=== PATIENT | male | born 1985 | race Caucasian/White ===

== ENCOUNTER 2017-03-11 10:37 | Observation (INO) | payer OTHER ==
[2017-03-11] MEDS ORDERED: Ketorolac 30 MG/ML SDV IVPUSH ONE (10:42)
[2017-03-11] MEDS ORDERED: Sodium Chloride 0.9% 1,000 ML IV ONE (10:42)
[2017-03-11] MEDS ORDERED: Ondansetron 4 MG/2 ML SDV IVPUSH ONE (10:42)
[2017-03-11 11:16] LABS: CHLORIDE,CL 107 mmol/L (98-110); SODIUM,NA 140 mmol/L (136-146)
[2017-03-11] MEDS ORDERED: Morphine 4 MG/ML Syringe IVPUSH ONE (11:32)
--- NOTE | 2017-03-11 11:32 | EDM.PDOC ---
ED HPI GENERAL MEDICAL PROBLEM - General Chief Complaint: Abdominal Pain Stated Complaint: ABD PAIN RT LOWER SIDE Time Seen by Provider: 03/11/17 10:41 Source of Information: Reports: Patient History Limitations: Reports: No Limitations - History of Present Illness INITIAL COMMENTS - FREE TEXT/NARRATIVE: HISTORY AND PHYSICAL: History of present illness: Patient is a 31-year-old male who presents to the emergency room with complaints of right lower quadrant pain. His right lower quadrant pain radiates into the right groin. He states it started approximately yesterday afternoon as had not resolved. He says it somewhat feels better "when I take a warm bath". He denies any nausea, vomiting, diarrhea or constipation. Denies any fever, chills, chest pain or shortness of breath. Ports that his bowel movements have been regular, has not noticed any blood. Denies any dysuria or difficulty starting his stream. He denies any testicular swelling or pain. Review of systems: As per history of present illness and below otherwise all systems reviewed and negative. Past medical history: As per history of present illness and as reviewed below otherwise noncontributory. Surgical history: As per history of present illness and as reviewed below otherwise noncontributory. Social history: No reported history of drug or alcohol abuse. Family history: As per history of present illness and as reviewed below otherwise noncontributory. Physical exam: Gen.: Well-developed and well-nourished 31-year-old male. Appears nontoxic and in no acute distress. Alert and oriented. HEENT: Atraumatic, normocephalic, pupils reactive, negative for conjunctival pallor or scleral icterus, mucous membranes moist, throat clear, neck supple, nontender, trachea midline. Lungs: Clear to auscultation, breath sounds equal bilaterally, chest nontender. Heart: S1S2, regular rate and rhythm Abdomen: Soft, nondistended, right lower quadrant tenderness with mild rebound tenderness. Negative for masses or hepatosplenomegaly. Negative for costovertebral tenderness. Pelvis: Stable nontender. Genitourinary: Deferred. Rectal: Deferred. Extremities: Atraumatic, negative for cords or calf pain. Neurovascular unremarkable. Neuro: Awake, alert, oriented. Cranial nerves II through XII unremarkable. Cerebellum unremarkable. Motor and sensory unremarkable throughout. Exam nonfocal. I discussed with the patient the labs and CT that were going to take place. At this time and going to give him some IV fluids Zofran and Toradol. I inform the patient if he needed any additional or stronger pain medication please let the nursing staff know and we will give that to him. Patient is aware of plan of care and denies any further questions at this time. 1315: CT results show extensive inflammatory changes to the right lower quadrant with concern about appendicitis. Dr. Rai was consulted at this time. He is aware of the case. He states he will come in to evaluate the patient. Patient is aware of CT findings with likely surgery this afternoon. Patient has been nothing by mouth since 9 AM this morning. The pain is managed. 1325- Dr. Rai and resident her here to evaluate the patient. Diagnostics: CBC, CMP, amylase, lipase, UA, CT abdomen and pelvis Therapeutics: IV fluid, Zofran, Toradol Impression: Appendicitis Plan: To the OR under the care of Dr. Rai. Definitive disposition and diagnosis as appropriate pending reevaluation and review of above. Improves with: Reports: Heat Therapy Worsens with: Reports: Movement Associated Symptoms: Reports: No Other Symptoms Right Lower Abdominal Pain Score (Numeric/FACES): 5 - Related Data Allergies Allergy/AdvReac Type Severity Reaction Status Date / Time penicillin Allergy Itching Verified 03/11/17 10:57 Home Meds: Home Meds . 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 ED EXAM, GI/ABD - Physical Exam Exam: See Below (See dictation) Course - Vital Signs Last Recorded V/S: Last Vital Signs Temp 36.2 C 03/11/17 10:53 Pulse 79 03/11/17 10:53 Resp 18 03/11/17 10:53 BP 130/56 L 03/11/17 10:53 Pulse Ox 97 03/11/17 10:53 - Orders/Labs/Meds Orders: Active Orders 24 hr Category Date Time Status Patient Status [ADT] Routine ADT 03/11/17 13:52 Active Antiembolic Devices [RC] PER UNIT ROUTINE Care 03/11/17 13:54 Active Bhatti Catheter Insertion [Insert Urinary Catheter] [OM. Care 03/11/17 14:00 Ordered PC] Q24H Notify Provider Consults [RC] ASDIRECTED Care 03/11/17 13:19 Active Oxygen Therapy [RC] PRN Care 03/11/17 13:52 Active Pulse Oximetry [RC] INTERMITTENT Care 03/11/17 13:52 Active Skin Preparation [RC] .PREOP Care 03/11/17 13:53 Active Urinary Catheter Assessment [RC] ASDIRECTED Care 03/11/17 13:53 Active Urinary Catheter Assessment [RC] ASDIRECTED Care 03/11/17 13:54 Active Vital Signs [RC] PER UNIT ROUTINE Care 03/11/17 13:52 Active Consult to Physician [CONS] Stat Cons 03/11/17 13:19 Active NPO Now [Nothing per Oral Now Diet] [DIET] Diet 03/11/17 Dinner Active Abdomen Pelvis w Cont [CT] Stat Exams 03/11/17 11:32 Taken Lactated Ringers [Ringers, Lactated] 1,000 ml Med 03/11/17 13:45 Active IV ASDIRECTED Antiembolic Hose [OM.PC] PER UNIT ROUTINE Oth 03/11/17 06:00 Ordered Antiembolic Hose [OM.PC] PER UNIT ROUTINE Oth 03/12/17 06:00 Ordered Sequential Compression Device [OM.PC] Routine Oth 03/11/17 13:52 Ordered Resuscitation Status Routine Resus Stat 03/11/17 13:52 Ordered Medication Orders Lactated Ringer's (Ringers, Lactated) 1,000 mls @ 150 mls/hr IV ASDIRECTED LASHAUN Labs: Laboratory Tests 03/11/17 03/11/17 03/11/17 Range/Units 10:51 10:51 11:02 WBC 11.11 H (4.0-11.0) K/uL RBC 5.19 (4.50-5.90) M/uL Hgb 15.7 (13.0-17.0) g/dL Hct 44.9 (38.0-50.0) % MCV 86.5 (80.0-98.0) fL MCH 30.3 (27.0-32.0) pg MCHC 35.0 (31.0-37.0) g/dL RDW Std Deviation 40.9 (28.0-62.0) fl RDW Coeff of Christen 13 (11.0-15.0) % Plt Count 197 (150-400) K/uL MPV 9.80 (7.40-12.00) fL Neut % (Auto) 78.7 (48.0-80.0) % Lymph % (Auto) 12.6 L (16.0-40.0) % [place] % (Auto) 7.5 (0.0-15.0) % Eos % (Auto) 1.1 (0.0-7.0) % Baso % (Auto) 0.1 (0.0-1.5) % Neut # (Auto) 8.8 H (1.4-5.7) K/uL Lymph # (Auto) 1.4 (0.6-2.4) K/uL [place] # (Auto) 0.8 (0.0-0.8) K/uL Eos # (Auto) 0.1 (0.0-0.7) K/uL Baso # (Auto) 0.0 (0.0-0.1) K/uL Nucleated RBC % 0.0 /100WBC Nucleated RBCs # 0 K/uL Sodium 140 (136-146) mmol/L Potassium 4.0 (3.5-5.1) mmol/L Chloride 107 (98-110) mmol/L Carbon Dioxide 24 (21-31) mmol/L BUN 14 (6.0-23.0) mg/dL Creatinine 0.9 (0.6-1.5) mg/dL Est Cr Clr Drug Dosing 125.05 mL/min Estimated GFR (MDRD) > 60.0 ml/min Glucose 87 (60-110) mg/dL Calcium 9.3 (8.8-10.8) mg/dL Total Bilirubin 1.3 (0.1-1.5) mg/dL AST 19 (5-40) IU/L ALT 33 (8-54) IU/L Alkaline Phosphatase 67 (40-150) Total Protein 7.5 (6.0-8.0) g/dL Albumin 4.2 (3.5-5.0) g/dL Globulin 3.3 (2.0-3.5) g/dL Albumin/Globulin Ratio 1.3 (1.3-2.8) Amylase 43 (10-90) U/L Lipase 24 (7-80) U/L Urine Color YELLOW Urine Appearance CLEAR Urine pH 7.0 (5.0-8.0) Ur Specific [place] 1.020 (1.001-1.035) Urine Protein NEGATIVE (NEGATIVE) mg/dL Urine Glucose (UA) NEGATIVE (NEGATIVE) mg/dL Urine Ketones TRACE H (NEGATIVE) mg/dL Urine Occult Blood NEGATIVE (NEGATIVE) Urine Nitrite NEGATIVE (NEGATIVE) Urine Bilirubin NEGATIVE (NEGATIVE) Urine Urobilinogen 0.2 (<2.0) EU/dL Ur Leukocyte Esterase NEGATIVE (NEGATIVE) Urine RBC 0-1 (0-2/HPF) Urine WBC 0-1 (0-5/HPF) Ur Epithelial Cells RARE (NONE-FEW) Urine Bacteria RARE (NEGATIVE) Urine Mucus LIGHT (NONE-MOD) Meds: Medications Generic Name Dose Route Start Last Admin Trade Name Freq PRN Reason Stop Dose Admin Lactated Ringer's 1,000 mls @ 150 mls/hr 03/11/17 13:45 Ringers, Lactated IV ASDIRECTED LASHAUN Discontinued Medications Generic Name Dose Route Start Last Admin Trade Name Freq PRN Reason Stop Dose Admin Bupivacaine HCl Confirm 03/11/17 13:45 Sensorcaine-Mpf 0.5% Administered 03/11/17 13:46 Dose 10 ml .ROUTE .STK-MED ONE Cefazolin Sodium Confirm 03/11/17 13:45 Ancef Administered 03/11/17 13:46 Dose 1 gm .ROUTE .STK-MED ONE Sodium Chloride 1,000 mls @ 999 mls/hr 03/11/17 10:42 03/11/17 11:24 Normal Saline IV 03/11/17 11:42 999 mls/hr STAT ONE Administration Cefoxitin Sodium 2 gm/ Premix 50 mls @ 100 mls/hr 03/11/17 13:33 IV 03/11/17 14:02 ONETIME ONE Iopamidol 100 ml 03/11/17 12:00 03/11/17 12:01 Isovue Multipack-370 (76%) IVPUSH 03/11/17 12:01 100 ml ONETIME STA Administration Ketorolac Tromethamine 30 mg 03/11/17 10:42 03/11/17 11:24 Toradol IVPUSH 03/11/17 10:43 30 mg ONETIME ONE Administration Morphine Sulfate 4 mg 03/11/17 11:32 03/11/17 12:08 Morphine IVPUSH 03/11/17 11:33 4 mg ONETIME ONE Administration Morphine Sulfate 2 mg 03/11/17 13:19 Morphine IVPUSH 03/11/17 13:20 ONETIME ONE Ondansetron HCl 4 mg 03/11/17 10:42 03/11/17 11:25 Zofran IVPUSH 03/11/17 10:43 4 mg ONETIME ONE Administration Departure - Departure Time of Disposition: 14:07 Disposition: Still A Patient 32 Clinical Impression: Appendicitis Qualifiers: Appendicitis type: acute appendicitis Acute appendicitis type: unspecified acute appendicitis type Qualified Code(s): K35.80 - Unspecified acute appendicitis - Discharge Information - My Orders Last 24 Hours: My Active Orders 03/11/17 11:32 Abdomen Pelvis w Cont [CT] Stat 03/11/17 13:19 Notify Provider Consults [RC] ASDIRECTED Consult to Physician [CONS] Stat - Assessment/Plan Last 24 Hours: My Active Orders 03/11/17 11:32 Abdomen Pelvis w Cont [CT] Stat 03/11/17 13:19 Notify Provider Consults [RC] ASDIRECTED Consult to Physician [CONS] Stat
[2017-03-11] MEDS ORDERED: Iopamidol 755 MG/ML 500 ML Multipack Bottle IVPUSH STA (12:00)
[2017-03-11] MEDS ORDERED: Morphine 2 MG/ML Syringe IVPUSH ONE (13:19)
[2017-03-11] MEDS ORDERED: cefOXitin 2 GM in Premix Bag 1 BAG IV ONE (13:33)
--- NOTE | 2017-03-11 13:40 | PCM.CONS ---
<Luca Ochoa - Last Filed: 03/11/17 13:46> H&P History of Present Illness - General Date of Service: 03/11/17 Admit Problem/Dx: Abdominal pain Source of Information: Patient History Limitations: Reports: No Limitations - History of Present Illness Initial Comments - Free Text/Narative: Mr. Bird is a 31 year old male with no significant PMH, previous abdominal surgeries who takes no medications, is allergic to penicillin, who presents with 3 days history of abdominal pain to the right lower quadrant which has not improved with time. He denies fevers or chills, chest pain or shortness of breath, but states his pain is ongoing with any movement and he has lost his appetite. He states he last ate a smoothy at 10 am. Location: Reports: Abdomen (RLQ) Quality: Reports: Ache Severity: Moderate Improves with: Reports: None Worsens with: Reports: Movement Associated Symptoms: Reports: Loss of Appetite. Denies: Fever/Chills, Nausea/ Vomiting Right Lower Abdominal Pain Score (Numeric/FACES): 5 - Related Data Allergies/Adverse Reactions: Allergies Allergy/AdvReac Type Severity Reaction Status Date / Time penicillin Allergy Itching Verified 03/11/17 10:57 Home Medications: Home Meds . [No Known Home Meds] 07/12/14 [History] Past Medical History - Past Health History Medical/Surgical History: Denies Medical/Surgical History Other Respiratory History: "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" Social & Family History - Tobacco Use Smoking Status *Q: Never Smoker Second Hand Smoke Exposure: No - Caffeine Use Caffeine Use: Reports: Coffee - Alcohol Use Days Per Week of Alcohol Use: 1 Number of Drinks Per Day: 2 Total Drinks Per Week: 2 - Recreational Drug Use Recreational Drug Use: No H&P Review of Systems - Review of Systems: Review Of Systems: See Below General: Reports: Decreased Appetite. Denies: Fever, Chills HEENT: Reports: No Symptoms Pulmonary: Reports: No Symptoms Cardiovascular: Reports: No Symptoms Gastrointestinal: Reports: Abdominal Pain. Denies: Nausea, Vomiting Genitourinary: Reports: No Symptoms Musculoskeletal: Reports: No Symptoms Skin: Reports: No Symptoms Psychiatric: Reports: No Symptoms Neurological: Reports: No Symptoms Hematologic/Lymphatic: Reports: No Symptoms Immunologic: Reports: No Symptoms Exam - Exam Exam: See Below - Vital Signs Vital Signs: Last Vital Signs Temp 36.2 C 03/11/17 10:53 Pulse 79 03/11/17 10:53 Resp 18 03/11/17 10:53 BP 130/56 L 03/11/17 10:53 Pulse Ox 97 03/11/17 10:53 Weight: 262 lb 5.601 oz - Exam Quality Assessment: No: Supplemental Oxygen, Urinary Catheter General: Alert, Oriented, Mild Distress, Other (Appears uncomfortable) HEENT: Conjunctiva Clear, EOMI, Hearing Intact, Other (malar erythema) Lungs: Clear to Auscultation, Normal Respiratory Effort Cardiovascular: Regular Rate, Regular Rhythm GI/Abdominal Exam: Soft, Tender (To RLQ on palpation and rebound). No: Distended Extremities: Normal Inspection, Normal Range of Motion Peripheral Pulses: 2+: Radial (L), Radial (R), Dorsalis Pedis (L), Dorsalis Pedis (R) Neuro Extensive - Mental Status: Alert, Oriented x3, Normal Mood/Affect, Normal Cognition, Memory Intact Psychiatric: Alert, Normal Affect, Normal Mood - Patient Data Lab Results Last 24 hrs: Laboratory Results - last 24 hr 03/11/17 03/11/17 03/11/17 Range/Units 10:51 10:51 11:02 WBC 11.11 H (4.0-11.0) K/uL RBC 5.19 (4.50-5.90) M/uL Hgb 15.7 (13.0-17.0) g/dL Hct 44.9 (38.0-50.0) % MCV 86.5 (80.0-98.0) fL MCH 30.3 (27.0-32.0) pg MCHC 35.0 (31.0-37.0) g/dL RDW Std Deviation 40.9 (28.0-62.0) fl RDW Coeff of Christen 13 (11.0-15.0) % Plt Count 197 (150-400) K/uL MPV 9.80 (7.40-12.00) fL Neut % (Auto) 78.7 (48.0-80.0) % Lymph % (Auto) 12.6 L (16.0-40.0) % [place] % (Auto) 7.5 (0.0-15.0) % Eos % (Auto) 1.1 (0.0-7.0) % Baso % (Auto) 0.1 (0.0-1.5) % Neut # (Auto) 8.8 H (1.4-5.7) K/uL Lymph # (Auto) 1.4 (0.6-2.4) K/uL [place] # (Auto) 0.8 (0.0-0.8) K/uL Eos # (Auto) 0.1 (0.0-0.7) K/uL Baso # (Auto) 0.0 (0.0-0.1) K/uL Nucleated RBC % 0.0 /100WBC Nucleated RBCs # 0 K/uL Sodium 140 (136-146) mmol/L Potassium 4.0 (3.5-5.1) mmol/L Chloride 107 (98-110) mmol/L Carbon Dioxide 24 (21-31) mmol/L BUN 14 (6.0-23.0) mg/dL Creatinine 0.9 (0.6-1.5) mg/dL Est Cr Clr Drug Dosing 125.05 mL/min Estimated GFR (MDRD) > 60.0 ml/min Glucose 87 (60-110) mg/dL Calcium 9.3 (8.8-10.8) mg/dL Total Bilirubin 1.3 (0.1-1.5) mg/dL AST 19 (5-40) IU/L ALT 33 (8-54) IU/L Alkaline Phosphatase 67 (40-150) Total Protein 7.5 (6.0-8.0) g/dL Albumin 4.2 (3.5-5.0) g/dL Globulin 3.3 (2.0-3.5) g/dL Albumin/Globulin Ratio 1.3 (1.3-2.8) Amylase 43 (10-90) U/L Lipase 24 (7-80) U/L Urine Color YELLOW Urine Appearance CLEAR Urine pH 7.0 (5.0-8.0) Ur Specific [place] 1.020 (1.001-1.035) Urine Protein NEGATIVE (NEGATIVE) mg/dL Urine Glucose (UA) NEGATIVE (NEGATIVE) mg/dL Urine Ketones TRACE H (NEGATIVE) mg/dL Urine Occult Blood NEGATIVE (NEGATIVE) Urine Nitrite NEGATIVE (NEGATIVE) Urine Bilirubin NEGATIVE (NEGATIVE) Urine Urobilinogen 0.2 (<2.0) EU/dL Ur Leukocyte Esterase NEGATIVE (NEGATIVE) Urine RBC 0-1 (0-2/HPF) Urine WBC 0-1 (0-5/HPF) Ur Epithelial Cells RARE (NONE-FEW) Urine Bacteria RARE (NEGATIVE) Urine Mucus LIGHT (NONE-MOD) Result Diagrams: 03/11/17 10:51 03/11/17 10:51 Consult PN Assessment/Plan Procedures: Procedures ASSAY OF AMYLASE (07/12/14) ASSAY OF LIPASE (07/12/14) C-REACTIVE PROTEIN (07/12/14) COMPLETE CBC W/AUTO DIFF WBC (05/21/16) COMPREHEN METABOLIC PANEL (07/12/14) CT ABD & PELVIS W/O CONTRAST (07/12/14) CT HEAD/BRAIN W/O DYE (11/14/14) EMERGENCY DEPT VISIT (11/14/14) IMMUNIZATION ADMIN (11/14/14) METABOLIC PANEL TOTAL CA (05/21/16) ROUTINE VENIPUNCTURE (05/21/16) RPR S/N/AX/GEN/TRNK2.6-7.5CM (11/14/14) TDAP VACCINE 7 YRS/> IM (11/14/14) URINALYSIS AUTO W/SCOPE (05/21/16) URINE CULTURE/COLONY COUNT (05/21/16) US EXAM ABDO BACK WALL GILBERT (05/22/16) (1) Abdominal pain SNOMED Code(s): 51338974 Code(s): R10.9 - UNSPECIFIED ABDOMINAL PAIN Current Visit: No Assessment:: Mr. Bird is a 31 year old male with no significant PMH, abdominal PSH, does not take medications, is allergic to penicillin who presents with 3 days of RLQ abdominal pain not improved with any therapy, worsened with movement, denies fevers, chill, chest pain, shortness of breath, nausea or vomiting. His labs are significant for leukocytosis at 11.11, CT significant for RLQ edema with concern of contained perforation, no free air appreciated. On physical exam the patient is acutely tender to the RLQ on palpation and rebound. Problem List Initiated/Reviewed/Updated: Yes My Orders Last 24 Hours: My Active Orders 03/11/17 13:33 cefOXitin [Mefoxin] 2 gm Sodium Chloride 0.9% [Normal Saline] 50 ml IV ONETIME 03/11/17 13:45 Lactated Ringers [Ringers, Lactated] 1,000 ml IV ASDIRECTED 03/11/17 Dinner NPO Now [Nothing per Oral Now Diet] [DIET] The risks, benefits and alternatives of laparoscopic versus open appendectomy were discussed with the patient and he agreed to proceed with surgery. We will proceed as soon as possible. NPO. Continue IVF lactated wringers 2 grams Cefoxin IV. <Kade Rai - Last Filed: 03/11/17 13:50> Exam - Vital Signs Vital Signs: Last Vital Signs Temp 97.1 F 03/11/17 10:53 Pulse 79 03/11/17 10:53 Resp 18 03/11/17 10:53 BP 130/56 L 03/11/17 10:53 Pulse Ox 97 03/11/17 10:53 - Patient Data Lab Results Last 24 hrs: Laboratory Results - last 24 hr 03/11/17 03/11/17 03/11/17 Range/Units 10:51 10:51 11:02 WBC 11.11 H (4.0-11.0) K/uL RBC 5.19 (4.50-5.90) M/uL Hgb 15.7 (13.0-17.0) g/dL Hct 44.9 (38.0-50.0) % MCV 86.5 (80.0-98.0) fL MCH 30.3 (27.0-32.0) pg MCHC 35.0 (31.0-37.0) g/dL RDW Std Deviation 40.9 (28.0-62.0) fl RDW Coeff of Christen 13 (11.0-15.0) % Plt Count 197 (150-400) K/uL MPV 9.80 (7.40-12.00) fL Neut % (Auto) 78.7 (48.0-80.0) % Lymph % (Auto) 12.6 L (16.0-40.0) % [place] % (Auto) 7.5 (0.0-15.0) % Eos % (Auto) 1.1 (0.0-7.0) % Baso % (Auto) 0.1 (0.0-1.5) % Neut # (Auto) 8.8 H (1.4-5.7) K/uL Lymph # (Auto) 1.4 (0.6-2.4) K/uL [place] # (Auto) 0.8 (0.0-0.8) K/uL Eos # (Auto) 0.1 (0.0-0.7) K/uL Baso # (Auto) 0.0 (0.0-0.1) K/uL Nucleated RBC % 0.0 /100WBC Nucleated RBCs # 0 K/uL Sodium 140 (136-146) mmol/L Potassium 4.0 (3.5-5.1) mmol/L Chloride 107 (98-110) mmol/L Carbon Dioxide 24 (21-31) mmol/L BUN 14 (6.0-23.0) mg/dL Creatinine 0.9 (0.6-1.5) mg/dL Est Cr Clr Drug Dosing 125.05 mL/min Estimated GFR (MDRD) > 60.0 ml/min Glucose 87 (60-110) mg/dL Calcium 9.3 (8.8-10.8) mg/dL Total Bilirubin 1.3 (0.1-1.5) mg/dL AST 19 (5-40) IU/L ALT 33 (8-54) IU/L Alkaline Phosphatase 67 (40-150) Total Protein 7.5 (6.0-8.0) g/dL Albumin 4.2 (3.5-5.0) g/dL Globulin 3.3 (2.0-3.5) g/dL Albumin/Globulin Ratio 1.3 (1.3-2.8) Amylase 43 (10-90) U/L Lipase 24 (7-80) U/L Urine Color YELLOW Urine Appearance CLEAR Urine pH 7.0 (5.0-8.0) Ur Specific [place] 1.020 (1.001-1.035) Urine Protein NEGATIVE (NEGATIVE) mg/dL Urine Glucose (UA) NEGATIVE (NEGATIVE) mg/dL Urine Ketones TRACE H (NEGATIVE) mg/dL Urine Occult Blood NEGATIVE (NEGATIVE) Urine Nitrite NEGATIVE (NEGATIVE) Urine Bilirubin NEGATIVE (NEGATIVE) Urine Urobilinogen 0.2 (<2.0) EU/dL Ur Leukocyte Esterase NEGATIVE (NEGATIVE) Urine RBC 0-1 (0-2/HPF) Urine WBC 0-1 (0-5/HPF) Ur Epithelial Cells RARE (NONE-FEW) Urine Bacteria RARE (NEGATIVE) Urine Mucus LIGHT (NONE-MOD) Result Diagrams: 03/11/17 10:51 03/11/17 10:51 Consult PN Assessment/Plan Procedures: Procedures ASSAY OF AMYLASE (07/12/14) ASSAY OF LIPASE (07/12/14) C-REACTIVE PROTEIN (07/12/14) COMPLETE CBC W/AUTO DIFF WBC (05/21/16) COMPREHEN METABOLIC PANEL (07/12/14) CT ABD & PELVIS W/O CONTRAST (07/12/14) CT HEAD/BRAIN W/O DYE (11/14/14) EMERGENCY DEPT VISIT (11/14/14) IMMUNIZATION ADMIN (11/14/14) METABOLIC PANEL TOTAL CA (05/21/16) ROUTINE VENIPUNCTURE (05/21/16) RPR S/N/AX/GEN/TRNK2.6-7.5CM (11/14/14) TDAP VACCINE 7 YRS/> IM (11/14/14) URINALYSIS AUTO W/SCOPE (05/21/16) URINE CULTURE/COLONY COUNT (05/21/16) US EXAM ABDO BACK WALL [place] (05/22/16) (1) Abdominal pain SNOMED Code(s): 27023236 Code(s): R10.9 - UNSPECIFIED ABDOMINAL PAIN Priority: High Current Visit : Yes Problem List Initiated/Reviewed/Updated: Yes Plan: Patient seen and examined with Dr. Ochoa. I agree with his assessment and plan. Laparoscopic appendectomy, possible open appendectomy. Both operative procedures, along with the risks, including, but not limited to, bleeding, infection, pneumonia, deep venous thrombosis, pulmonary emboli, myocardial infarction, and adjacent organ injury have been reviewed with the patient who voices understanding, offers no questions and agrees to proceed.
[2017-03-11] MEDS ORDERED: ceFAZolin 1 GM Vial ONE (13:45)
[2017-03-11] MEDS ORDERED: Bupivacaine 0.5% 10 ML SDV ONE (13:45)
[2017-03-11] MEDS ORDERED: Midazolam 1 MG/ML 2 ML SDV ONE (14:05)
[2017-03-11] MEDS ORDERED: Rocuronium 10 MG/ML 10 ML Syringe ONE (14:05)
[2017-03-11] MEDS ORDERED: Ondansetron 4 MG/2 ML SDV ONE (14:05)
[2017-03-11] MEDS ORDERED: Lidocaine 2% 5 ML SDV ONE (14:05)
[2017-03-11] MEDS ORDERED: Propofol 200 MG/20 ML SDV ONE (14:05)
[2017-03-11] MEDS ORDERED: Succinylcholine/Normal Saline 200 MG/10 ML Syringe ONE (14:05)
[2017-03-11] MEDS ORDERED: fentaNYL 250 MCG/5 ML SDV ONE ×2 (14:05→14:37)
[2017-03-11] MEDS: Lactated Ringers 1,000 ML IV SCH ×2 (14:15→18:01)
--- NOTE | 2017-03-11 14:15 | PCM.PREANE ---
Preanesthetic Assessment - Anesthesia/Transfusion/Family Hx Anesthesia History: Prior Anesthesia Without Reaction - Review of Systems General: No Symptoms Pulmonary: No Symptoms Cardiovascular: No Symptoms Gastrointestinal: No Symptoms Neurological: No Symptoms Other: Reports: None - Physical Assessment NPO Status Date: 03/11/17 NPO Status Time: 09:00 O2 Sat by Pulse Oximetry: 97 Respiratory Rate: 18 Vital Signs: Last Vital Signs Temp 97.1 F 03/11/17 10:53 Pulse 79 03/11/17 10:53 Resp 18 03/11/17 10:53 BP 130/56 L 03/11/17 10:53 Pulse Ox 97 03/11/17 10:53 Height: 5 ft 10 in Weight: 119 kg ASA Class: 2E Mental Status: Alert & Oriented x3 Airway Class: Mallampati = 2 Dentition: Reports: Normal Dentition Thyro-Mental Finger Breadths: 3 Mouth Opening Finger Breadths: 3 ROM/Head Extension: Full Lungs: Clear to Auscultation, Normal Respiratory Effort Cardiovascular: Regular Rate, Regular Rhythm - Lab Values: Laboratory Last Values WBC 11.11 K/uL (4.0-11.0) H 03/11/17 10:51 RBC 5.19 M/uL (4.50-5.90) 03/11/17 10:51 Hgb 15.7 g/dL (13.0-17.0) 03/11/17 10:51 Hct 44.9 % (38.0-50.0) 03/11/17 10:51 MCV 86.5 fL (80.0-98.0) 03/11/17 10:51 MCH 30.3 pg (27.0-32.0) 03/11/17 10:51 MCHC 35.0 g/dL (31.0-37.0) 03/11/17 10:51 RDW Std Deviation 40.9 fl (28.0-62.0) 03/11/17 10:51 RDW Coeff of Christen 13 % (11.0-15.0) 03/11/17 10:51 Plt Count 197 K/uL (150-400) 03/11/17 10:51 MPV 9.80 fL (7.40-12.00) 03/11/17 10:51 Neut % (Auto) 78.7 % (48.0-80.0) 03/11/17 10:51 Lymph % (Auto) 12.6 % (16.0-40.0) L 03/11/17 10:51 [place] % (Auto) 7.5 % (0.0-15.0) 03/11/17 10:51 Eos % (Auto) 1.1 % (0.0-7.0) 03/11/17 10:51 Baso % (Auto) 0.1 % (0.0-1.5) 03/11/17 10:51 Neut # (Auto) 8.8 K/uL (1.4-5.7) H 03/11/17 10:51 Lymph # (Auto) 1.4 K/uL (0.6-2.4) 03/11/17 10:51 [place] # (Auto) 0.8 K/uL (0.0-0.8) 03/11/17 10:51 Eos # (Auto) 0.1 K/uL (0.0-0.7) 03/11/17 10:51 Baso # (Auto) 0.0 K/uL (0.0-0.1) 03/11/17 10:51 Nucleated RBC % 0.0 /100WBC 03/11/17 10:51 Nucleated RBCs # 0 K/uL 03/11/17 10:51 Sodium 140 mmol/L (136-146) 03/11/17 10:51 Potassium 4.0 mmol/L (3.5-5.1) 03/11/17 10:51 Chloride 107 mmol/L (98-110) 03/11/17 10:51 Carbon Dioxide 24 mmol/L (21-31) 03/11/17 10:51 BUN 14 mg/dL (6.0-23.0) 03/11/17 10:51 Creatinine 0.9 mg/dL (0.6-1.5) 03/11/17 10:51 Est Cr Clr Drug Dosing 125.05 mL/min 03/11/17 10:51 Estimated GFR (MDRD) > 60.0 ml/min 03/11/17 10:51 Glucose 87 mg/dL (60-110) 03/11/17 10:51 Calcium 9.3 mg/dL (8.8-10.8) 03/11/17 10:51 Total Bilirubin 1.3 mg/dL (0.1-1.5) 03/11/17 10:51 AST 19 IU/L (5-40) 03/11/17 10:51 ALT 33 IU/L (8-54) 03/11/17 10:51 Alkaline Phosphatase 67 (40-150) 03/11/17 10:51 Total Protein 7.5 g/dL (6.0-8.0) 03/11/17 10:51 Albumin 4.2 g/dL (3.5-5.0) 03/11/17 10:51 Globulin 3.3 g/dL (2.0-3.5) 03/11/17 10:51 Albumin/Globulin Ratio 1.3 (1.3-2.8) 03/11/17 10:51 Amylase 43 U/L (10-90) 03/11/17 10:51 Lipase 24 U/L (7-80) 03/11/17 10:51 Urine Color YELLOW 03/11/17 11:02 Urine Appearance CLEAR 03/11/17 11:02 Urine pH 7.0 (5.0-8.0) 03/11/17 11:02 Ur Specific [place] 1.020 (1.001-1.035) 03/11/17 11:02 Urine Protein NEGATIVE mg/dL (NEGATIVE) 03/11/17 11:02 Urine Glucose (UA) NEGATIVE mg/dL (NEGATIVE) 03/11/17 11:02 Urine Ketones TRACE mg/dL (NEGATIVE) H 03/11/17 11:02 Urine Occult Blood NEGATIVE (NEGATIVE) 03/11/17 11:02 Urine Nitrite NEGATIVE (NEGATIVE) 03/11/17 11:02 Urine Bilirubin NEGATIVE (NEGATIVE) 03/11/17 11:02 Urine Urobilinogen 0.2 EU/dL (<2.0) 03/11/17 11:02 Ur Leukocyte Esterase NEGATIVE (NEGATIVE) 03/11/17 11:02 Urine RBC 0-1 (0-2/HPF) 03/11/17 11:02 Urine WBC 0-1 (0-5/HPF) 03/11/17 11:02 Ur Epithelial Cells RARE (NONE-FEW) 03/11/17 11:02 Urine Bacteria RARE (NEGATIVE) 03/11/17 11:02 Urine Mucus LIGHT (NONE-MOD) 03/11/17 11:02 - Allergies Allergies/Adverse Reactions: Allergies Allergy/AdvReac Type Severity Reaction Status Date / Time penicillin Allergy Itching Verified 03/11/17 10:57 - Acknowledgements Anesthesia Type Planned: General Anesthesia (RSI GETA) Pt an Appropriate Candidate for the Planned Anesthesia: Yes Alternatives and Risks of Anesthesia Discussed w Pt/Guardian: Yes Pt/Guardian Understands and Agrees with Anesthesia Plan: Yes PreAnesthesia Questionnaire - Past Health History Medical/Surgical History: Denies Medical/Surgical History HEENT History: Reports: None Cardiovascular History: Reports: None Other Respiratory History: "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" Gastrointestinal History: Reports: Other (See Below) (Appendicitis) Genitourinary History: Reports: None Musculoskeletal History: Reports: None Neurological History: Reports: None Psychiatric History: Reports: None Endocrine/Metabolic History: Reports: Obesity/BMI 30+ Hematologic History: Reports: None Immunologic History: Reports: None Oncologic (Cancer) History: Reports: None Dermatologic History: Reports: None - Infectious Disease History Infectious Disease History: Reports: None - SUBSTANCE USE Smoking Status *Q: Never Smoker Second Hand Smoke Exposure: No Days Per Week of Alcohol Use: 1 Number of Drinks Per Day: 2 Total Drinks Per Week: 2 Recreational Drug Use History: No - HOME MEDS Home Medications: Home Meds . [No Known Home Meds] 07/12/14 [History] - CURRENT (IN HOUSE) MEDS Current Meds: Current Medications Lactated Ringer's (Ringers, Lactated) 1,000 mls @ 150 mls/hr IV ASDIRECTED [facility] Discontinued Medications Bupivacaine HCl (Sensorcaine-Mpf 0.5%) Confirm Administered Dose 10 ml .ROUTE .STK-MED ONE Stop: 03/11/17 13:46 Cefazolin Sodium (Ancef) Confirm Administered Dose 1 gm .ROUTE .STK-MED ONE Stop: 03/11/17 13:46 Fentanyl (Sublimaze) Confirm Administered Dose 250 mcg .ROUTE .STK-MED ONE Stop: 03/11/17 14:06 Sodium Chloride (Normal Saline) 1,000 mls @ 999 mls/hr IV STAT ONE Stop: 03/11/17 11:42 Last Admin: 03/11/17 11:24 Dose: 999 mls/hr Cefoxitin Sodium 2 gm/ Premix 50 mls @ 100 mls/hr IV ONETIME ONE Stop: 03/11/17 14:02 Iopamidol (Isovue Multipack-370 (76%)) 100 ml IVPUSH ONETIME STA Stop: 03/11/17 12:01 Last Admin: 03/11/17 12:01 Dose: 100 ml Ketorolac Tromethamine (Toradol) 30 mg IVPUSH ONETIME ONE Stop: 03/11/17 10:43 Last Admin: 03/11/17 11:24 Dose: 30 mg Lidocaine (Xylocaine-Mpf 2%) Confirm Administered Dose 5 ml .ROUTE .STK-MED ONE Stop: 03/11/17 14:06 Midazolam HCl (Versed 1 Mg/Ml) Confirm Administered Dose 2 mg .ROUTE .STK-MED ONE Stop: 03/11/17 14:06 Morphine Sulfate (Morphine) 4 mg IVPUSH ONETIME ONE Stop: 03/11/17 11:33 Last Admin: 03/11/17 12:08 Dose: 4 mg Morphine Sulfate (Morphine) 2 mg IVPUSH ONETIME ONE Stop: 03/11/17 13:20 Ondansetron HCl (Zofran) 4 mg IVPUSH ONETIME ONE Stop: 03/11/17 10:43 Last Admin: 03/11/17 11:25 Dose: 4 mg Ondansetron HCl (Zofran) Confirm Administered Dose 4 mg .ROUTE .STK-MED ONE Stop: 03/11/17 14:06 Propofol (Diprivan 20 Ml) Confirm Administered Dose 200 mg .ROUTE .STK-MED ONE Stop: 03/11/17 14:06 Rocuronium [place] (Zemuron) Confirm Administered Dose 100 mg .ROUTE .STK-MED ONE Stop: 03/11/17 14:06 Succinylcholine Chloride (Succinylcholine In Ns Pf) Confirm Administered Dose 200 mg .ROUTE .STK-MED ONE Stop: 03/11/17 14:06
[2017-03-11] MEDS ORDERED: Labetalol 100 MG/20 ML MDV ONE (14:52)
[2017-03-11] MEDS ORDERED: Neostigmine Methylsulfate 1 MG/ML 5 ML Syringe ONE (15:17)
[2017-03-11] MEDS ORDERED: Meperidine PF 25 MG/ML Syringe ONE (15:30)
--- NOTE | 2017-03-11 15:41 | PCM.OPNOTE ---
- General Post-Op/Procedure Note Date of Surgery/Procedure: 03/11/17 Operative Procedure(s): Laparoscopic appendectomy with placement of a 10 mm flat Scooter-Elliott drain in the right paracolic space. Pre Op Diagnosis: Acute abdomen Post-Op Diagnosis: Acute ruptured appendicitis Anesthesia Technique: General ET Tube (ASA IIE) Primary Surgeon: Kade Rai Child Specialist: Luca Ochoa Fluid Replacement, Intraop: 1,500 Output, Urine Amount: 100 EBL in mLs: 20 Surgical Drain/Tube Type: Scooter Elliott Flat Drain Condition: Stable Free Text/Narrative:: Intake & Output 03/11/17 03/11/17 03/11/17 03:59 11:59 19:59 Output Total 100 Balance -100 Dictation [id number]
[2017-03-11] MEDS ORDERED: Ondansetron 4 MG/2 ML SDV IVPUSH PRN (15:42)
[2017-03-11] MEDS ORDERED: cefOXitin 1 GM in Premix Bag 1 BAG IV SCH (15:45)
[2017-03-11] MEDS ORDERED: Metoclopramide 10 MG/2 ML SDV IV SCH (15:45)
[2017-03-11] MEDS ORDERED: fentaNYL 100 MCG/2 ML SDV IVPUSH PRN (16:00)
--- NOTE | 2017-03-11 16:00 | OR ---
SURGEON: Kade Rai M.D. DATE OF PROCEDURE: 03/11/2017 OPERATION PERFORMED: Laparoscopic appendectomy with placement of a 10-mm flat Scooter-Elliott drain. PEANUT FARMER: Secretary Of Police: Luca Ochoa, PGY-2. ANESTHESIA: General endotracheal. ASA CLASSIFICATION: IIE. PREOPERATIVE DIAGNOSIS: Acute abdomen. POSTOPERATIVE DIAGNOSIS: Acute ruptured appendicitis with right lower quadrant phlegmon. ESTIMATED BLOOD LOSS: 20 mL. INTRAOPERATIVE FLUID REPLACEMENT: 1500 mL of crystalloid. DESCRIPTION OF PROCEDURE: The patient was taken to the operating room and placed on the operating table in the supine position. Time-out was called for appropriate identification of the patient and procedure. Sequential compression boots were placed. Following satisfactory attainment of general endotracheal anesthesia, a Bhatti catheter was placed in the patient's urinary bladder. The abdomen was prepped with DuraPrep solution. Sterile drapes were applied. Skin just above the umbilicus was infiltrated with 0.5% Marcaine solution. A skin incision was made and deepened through the subcutaneous tissue. Veress needle was introduced into the peritoneal cavity. Saline drop test was positive. Carbon dioxide pneumoperitoneum was established with the release set at 13 cm of water. Once we had a satisfactory pneumoperitoneum, 5-mm camera and port were placed through the supraumbilical incision. The patient was now positioned with his head down and rolled to the left. Under camera vision, 12 mm suprapubic and 5 mm left lower quadrant ports were placed. Each incision was preemptively infiltrated with 0.5% Marcaine solution. There was a large phlegmon in the right lower quadrant. We were able to mobilize this carefully. Identifying the distal ileum and anterior tenia of the ascending colon, we were able to deliver the appendix to the point where we could see it. The mesoappendix was taken down with the Harmonic scalpel. The appendix was transected using the Endo-JUDSON stapler with a blue load. The appendix was then placed in an Endopouch and secured. The right lower quadrant was inspected for hemostasis. No abscess was noted; however, there was a very raw surface area. A 10-mm flat Scooter-Elliott was placed through the 12-mm suprapubic port and held in place. The right lower quadrant was irrigated with 1 L of saline solution, which was then aspirated. The Scooter-Elliott drain was held in place while the 12 mm suprapubic port and Endopouch-containing appendix were removed. The drain was then secured to the anterior abdominal wall with a 2-0 silk suture. The wounds were inspected for hemostasis and small bleeding sites were electrocoagulated. The supraumbilical and suprapubic ports were closed in 2 layers approximating the subcutaneous tissue with 3-0 Polysorb and the skin with skin clips. The left lower quadrant incision was closed with skin clips. The supraumbilical and left lower quadrant ports were dressed with Tegaderm. A drain sponge was placed over the suprapubic incision and secured with Mefix tape. Sponge, needle, and instrument counts were all correct. Prior to emergence from anesthesia, the Bhatti catheter was removed. Following emergence from anesthesia, the patient was taken to recovery room in a stable condition. JOSE D REIS /[id number]
[2017-03-11] MEDS ORDERED: Albuterol/Ipratropium 3.0-0.5 MG/3 ML Neb Soln NEB ONE (16:01)
--- NOTE | 2017-03-11 17:05 | PCM.SN ---
- Free Text/Narrative Note: Pt was brought the PACU with ETT in place and spontaneous respirations, RR - 12 TV - 1100. Pt grupo off the bed in PACU opened his eyes, oral suctioning was performed and ETT was removed. Pt initially did very well and then suddenly began having hypoxia and coughing with a moderate amount pink frothy fluid noted. Simple mask at 10 LPM O2 was provided with SpO2 70-80%, Duo-neb was ordered and BiPap was ordered as well for suspected negative pressure pulmonary edema. CXR pending. Currently the patient has markedly improved on BiPaP. Initial settings were conservative at FiO2 100% and 10/5 and yielded SpO2 98%. I have since weaned him down to FiO2 - 40% and his current SpO2 is 91%. The patient also states that he feels much better with the BiPaP machine in place. We will attempt to wean him off the BiPaP machine prior to discharge from PACU, otherwise he may need to go the the ICU if he is dependant on the BiPaP machine.
--- NOTE | 2017-03-11 17:42 | PCM.POSTAN ---
POST ANESTHESIA ASSESSMENT - MENTAL STATUS Mental Status: Alert, Oriented - VITAL SIGNS SaO2: 93 (Simple Mask 6 LPM) Resp Rate: 14 - RESPIRATORY Respiratory Status: Respiratory Rate WNL, Airway Patent, O2 Saturation Stable - CARDIOVASCULAR CV Status: Pulse Rate WNL, Blood Pressure Stable - GASTROINTESTINAL GI Status: No Symptoms - PAIN Pain Score: 1 - POST OP HYDRATION Hydration Status: Adequate & Stable - OBSERVATIONS Free Text/Narrative:: Pt is maintaining his SpO2 >90% on Simple Mask at 6 LPM at this time. The patient was encouraged to use BiPaP while sleeping and while awake when possible. Pt expresses understanding.
[2017-03-11] MEDS: Morphine 10 MG/ML Syringe IVPUSH PRN ×2 (18:22→23:20)
--- NOTE | 2017-03-11 19:34 | PCM.SN ---
- Free Text/Narrative Note: Pt currently is doing well, SpO2 has been slowly improving over the past two hours. On discharge from PACU SpO2 was 90-93% on Simple Mask at 6LPM. Currently SpO2 is up to 95-96% on simple mask at 6LPM. Pt is resting comfortably at this time, he has had one dose of morphine and has remained stable since.
[2017-03-11] MEDS: Acetaminophen/HYDROcodone 325-5 MG Tab PO PRN (20:29)
[2017-03-11] MEDS: Acetaminophen 325 MG Tab PO PRN (22:53)
[2017-03-11] MEDS: cefOXitin 1 GM in Premix Bag 1 BAG IV SCH (22:53)
--- NOTE | 2017-03-11 23:26 | PCM48HPAN ---
Post Anesthesia Note - EVALUATION WITHIN 48HRS OF ANESTHETIC Vital Signs in Normal Range: Yes Patient Participated in Evaluation: Yes Respiratory Function Stable: Yes Airway Patent: Yes Cardiovascular Function Stable: Yes Hydration Status Stable: Yes Pain Control Satisfactory: Yes Nausea and Vomiting Control Satisfactory: Yes Mental Status Recovered: Yes
[2017-03-12] MEDS: Metoclopramide 10 MG/2 ML SDV IVPUSH SCH ×3 (01:14→12:18)
[2017-03-12] MEDS: Lactated Ringers 1,000 ML IV SCH ×2 (01:15→08:12)
[2017-03-12] MEDS: Acetaminophen/HYDROcodone 325-5 MG Tab PO PRN ×3 (05:14→13:37)
[2017-03-12] MEDS: cefOXitin 1 GM in Premix Bag 1 BAG IV SCH (06:20)
--- NOTE | 2017-03-12 06:59 | PCM.PN ---
- General Info Date of Service: 03/12/17 Admission Dx/Problem (Free Text): Acute perforated appendicitis Subjective Update: Mr. Bird is POD 1 s/p laparoscopic appendectomy for perforated appendicitis, suffered from suspected negative pressure pulmonary edema, improved after duoneb and bipap treatment, weaned to 2L O2 via NC, no acute events overnight, continues to have some abdominal pain and chest pain on deep inspiration, using incentive spirometer to 1250 cc, tolerating sips of water, denies fevers, chills , nausea or vomiting; he has voided once. Functional Status: Reports: Pain Controlled - Review of Systems General: Denies: Fever, Chills Pulmonary: Reports: Pleuritic Chest Pain Cardiovascular: Denies: Palpitations Gastrointestinal: Reports: Abdominal Pain (appropirate for post-operative course ), Decreased Appetite. Denies: Nausea, Vomiting Genitourinary: Reports: No Symptoms Musculoskeletal: Reports: No Symptoms Neurological: Reports: No Symptoms Psychiatric: Reports: No Symptoms - Patient Data Vitals - Most Recent: Last Vital Signs Temp 37.2 C 03/12/17 06:13 Pulse 67 03/12/17 06:13 Resp 18 03/12/17 06:13 BP 113/60 03/12/17 06:13 Pulse Ox 97 03/12/17 06:13 Weight - Most Recent: 119 kg I&O - Last 24 Hours: Intake & Output 03/11/17 03/11/17 03/12/17 14:59 22:59 06:59 Intake Total 2299 Output Total 425 Balance 1874 Med Orders - Current: Current Medications Acetaminophen (Tylenol) 325 mg PO Q4H PRN PRN Reason: Fever Greater Than 101 Last Admin: 03/11/17 22:53 Dose: 325 mg Hydrocodone Bitart/Acetaminophen ([place] 325-5 Mg) 1 - 2 tab PO Q4H PRN PRN Reason: Pain (moderate 4-6) Last Admin: 03/12/17 05:14 Dose: 2 tab Fentanyl (Sublimaze) 50 mcg IVPUSH Q5M PRN PRN Reason: Pain (severe 7-10) Stop: 03/12/17 16:01 Lactated Ringer's (Ringers, Lactated) 1,000 mls @ 150 mls/hr IV ASDIRECTED [facility] Last Admin: 03/12/17 01:15 Dose: 150 mls/hr Lactated Ringer's (Ringers, Lactated) 1,000 mls @ 150 mls/hr IV ASDIRECTED [facility] Last Admin: 03/11/17 18:01 Dose: 150 mls/hr Cefoxitin Sodium 1 gm/ Premix 50 mls @ 100 mls/hr IV Q8H [facility] Last Admin: 03/12/17 06:20 Dose: 100 mls/hr Metoclopramide HCl (Reglan) 10 mg IVPUSH Q6H [facility] Last Admin: 03/12/17 06:20 Dose: 10 mg Morphine Sulfate (Morphine) 1 - 5 mg IVPUSH Q30M PRN PRN Reason: Pain (severe 7-10) Last Admin: 03/11/17 23:20 Dose: 3 mg Ondansetron HCl (Zofran) 4 mg IVPUSH Q6H PRN PRN Reason: Nausea/Vomiting Discontinued Medications Albuterol/Ipratropium (Duoneb 3.0-0.5 Mg/3 Ml) 3 ml NEB ONETIME ONE Stop: 03/11/17 16:02 Last Admin: 03/11/17 16:12 Dose: 3 ml Bupivacaine HCl (Sensorcaine-Mpf 0.5%) Confirm Administered Dose 10 ml .ROUTE .STK-MED ONE Stop: 03/11/17 13:46 Cefazolin Sodium (Ancef) Confirm Administered Dose 1 gm .ROUTE .STK-MED ONE Stop: 03/11/17 13:46 Fentanyl (Sublimaze) Confirm Administered Dose 250 mcg .ROUTE .STK-MED ONE Stop: 03/11/17 14:06 Fentanyl (Sublimaze) Confirm Administered Dose 250 mcg .ROUTE .STK-MED ONE Stop: 03/11/17 14:38 Glycopyrrolate () Confirm Administered Dose 1 mg .ROUTE .STK-MED ONE Stop: 03/11/17 15:18 Sodium Chloride (Normal Saline) 1,000 mls @ 999 mls/hr IV STAT ONE Stop: 03/11/17 11:42 Last Admin: 03/11/17 11:24 Dose: 999 mls/hr Cefoxitin Sodium 2 gm/ Premix 50 mls @ 100 mls/hr IV ONETIME ONE Stop: 03/11/17 14:02 Last Admin: 03/11/17 14:15 Dose: 100 mls/hr Cefoxitin Sodium 1 gm/ Premix 50 mls @ 100 mls/hr IV Q8H [facility] Last Admin: 03/11/17 20:22 Dose: Not Given Iopamidol (Isovue Multipack-370 (76%)) 100 ml IVPUSH ONETIME STA Stop: 03/11/17 12:01 Last Admin: 03/11/17 12:01 Dose: 100 ml Ketorolac Tromethamine (Toradol) 30 mg IVPUSH ONETIME ONE Stop: 03/11/17 10:43 Last Admin: 03/11/17 11:24 Dose: 30 mg Labetalol HCl (Normodyne) Confirm Administered Dose 100 mg .ROUTE .STK-MED ONE Stop: 03/11/17 14:53 Lidocaine (Xylocaine-Mpf 2%) Confirm Administered Dose 5 ml .ROUTE .STK-MED ONE Stop: 03/11/17 14:06 Meperidine HCl (Demerol) Confirm Administered Dose 25 mg .ROUTE .STK-MED ONE Stop: 03/11/17 15:31 Metoclopramide HCl (Reglan) 10 mg IV Q6H [facility] Last Admin: 03/11/17 18:21 Dose: 10 mg Midazolam HCl (Versed 1 Mg/Ml) Confirm Administered Dose 2 mg .ROUTE .STK-MED ONE Stop: 03/11/17 14:06 Morphine Sulfate (Morphine) 4 mg IVPUSH ONETIME ONE Stop: 03/11/17 11:33 Last Admin: 03/11/17 12:08 Dose: 4 mg Morphine Sulfate (Morphine) 2 mg IVPUSH ONETIME ONE Stop: 03/11/17 13:20 Last Admin: 03/11/17 14:15 Dose: 2 mg Neostigmine Methylsulfate (Neostigmine) Confirm Administered Dose 5 mg .ROUTE .STK-MED ONE Stop: 03/11/17 15:18 Ondansetron HCl (Zofran) 4 mg IVPUSH ONETIME ONE Stop: 03/11/17 10:43 Last Admin: 03/11/17 11:25 Dose: 4 mg Ondansetron HCl (Zofran) Confirm Administered Dose 4 mg .ROUTE .STK-MED ONE Stop: 03/11/17 14:06 Propofol (Diprivan 20 Ml) Confirm Administered Dose 200 mg .ROUTE .STK-MED ONE Stop: 03/11/17 14:06 Rocuronium [place] (Zemuron) Confirm Administered Dose 100 mg .ROUTE .STK-MED ONE Stop: 03/11/17 14:06 Succinylcholine Chloride (Succinylcholine In Ns Pf) Confirm Administered Dose 200 mg .ROUTE .STK-MED ONE Stop: 03/11/17 14:06 - Exam Quality Assessment: Supplemental Oxygen (2 L via NC) General: Alert, Oriented, Cooperative, Mild Distress (abdominal tenderness) HEENT: EOMI Lungs: Decreased Breath Sounds. No: Rales, Rhonchi, Stridor, Wheezing Cardiovascular: Regular Rate, Regular Rhythm GI/Abdominal Exam: Soft, No Distention, Tender (To incision sites and RLQ), Other (suprapubic drain with serosanguinous output) Extremities: Normal Inspection, Normal Range of Motion, Normal Capillary Refill Peripheral Pulses: 2+: Radial (L), Radial (R) Wound/Incisions: Other (Dressing C/D/I, drain with serosanguinous output) Psy/Mental Status: Alert, Normal Affect, Normal Mood - Problem List & Annotations (1) Abdominal pain SNOMED Code(s): 38435025 Code(s): R10.9 - UNSPECIFIED ABDOMINAL PAIN Status: Acute Priority: High Current Visit: Yes (2) Appendicitis SNOMED Code(s): 92235562 Code(s): K37 - UNSPECIFIED APPENDICITIS Status: Acute Current Visit: Yes Qualifiers: Appendicitis type: acute appendicitis Acute appendicitis type: unspecified acute appendicitis type Qualified Code(s): K35.80 - Unspecified acute appendicitis - Problem List Review Problem List Initiated/Reviewed/Updated: Yes - Assessment Assessment:: Mr. Bird is POD 1 laparoscopic appendectomy for perforated appendicitis with drain placement, post-operative course complicated by suspected negative pressure pulmonary edema, patient improved overnight, weaned to 2L O2 via NC, tolerating sips of water, voided x1, able to IS to 1250, pain controlled, WBC pending, drain with serosanguinous output. - Plan Plan:: Will await return of CBC Continue IVF Wean supplemental O2 as tolerated Full liquid diet Monitor I&O Discharge pending, improving WBC, weaned from supplemental O2, ambulating in halls, pain controlled on oral regimen, tolerating a diet.
[2017-03-12] MEDS: Acetaminophen 325 MG Tab PO PRN (08:17)
[2017-03-12 11:25] VITALS: BP 120/59
--- NOTE | 2017-03-12 13:18 | CT ---
EXAM DATE: 03/11/17 PATIENT'S AGE: 31 Patient: JENNIFER SELBY Facility: [place], [place] Site . Site : 1985 Study: CT Abdomen/Pelvis [id number]/23/2017 12:42:29 PM Ordering Physician: Doctor Osuna Final Report: INDICATION: Right lower quadrant pain x2 days. Technique: Volumetric CT acquisition of the abdomen and pelvis following the administration of 100 mL Isovue-370 intravenous contrast. Multiplanar reconstruction. Comparison: CT abdomen and pelvis on 07/13/2014. Findings Stable noncalcified 2 mm pleural based nodule in the left lower lobe. Lung bases otherwise clear. Liver, spleen, pancreas, adrenal glands, gallbladder, and biliary tract are unremarkable. Kidneys normal in size, shape, and position. Both kidneys are functioning. No hydronephrosis. No renal masses or focal parenchymal abnormalities. No para-aortic or retrocrural lymphadenopathy. Normal bowel gas pattern. Extensive inflammatory change in the right lower quadrant of the abdomen. The appendix was well defined on the prior study and is not well defined at this time. Right lower quadrant findings suspicious for appendicitis with extensive inflammatory change. A walled-off rupture cannot be entirely excluded. There is no free intraperitoneal air. There are no drainable fluid collections. There is no free fluid. Urinary bladder has a smooth contour. The fat planes surrounding the bladder, rectum, and prostate are maintained. No acute bony abnormality. Impression: Extensive inflammatory change in the right lower quadrant of the abdomen raises concern for appendicitis with possible contained rupture. No free air or free fluid or drainable fluid collection. Please note that all CT scans at this facility use dose modulation, iterative reconstruction, and/or weight-based dosing when appropriate to reduce radiation dose to as low as reasonably achievable. Dictated by Ronnie Card MD @ Mar 11 2017 12:59PM (Electronic Signature) Report Signed by Proxy. MARÍA ELENA
--- NOTE | 2017-03-12 13:29 | CR ---
EXAM DATE: 03/11/17 PATIENT'S AGE: 31 Patient: JENNIFER SELBY Facility: [place], [place] Site . Site : 1985 Study: XRay Chest [id number] 4:38:41 PM Ordering Physician: Fredi Braun Final Report: INDICATION: Postop hypoxia. Technique: Portable chest. Findings: Heart and mediastinum are normal in size. Pulmonary vessels are normal. Lungs are clear. No pleural fluid. No acute bony abnormality. Impression: No acute chest disease. Dictated by Ronnie Card MD @ Mar 11 2017 4:42PM (Electronic Signature) Report Signed by Proxy. [facility]
== END 2017-03-12 14:25 | disposition home or self-care (01) ==
LOC: MW.ED 10:37 → MW.SDS 13:38 → MW.MS 18:25 → MW.SDS 19:13 → MW.MS 19:14
PROVIDERS: ADMIT Surgery; ATTEND Surgery
DX: K35.2 Acute appendicitis with generalized peritonitis (principal); Z88.0 Allergy status to penicillin; E66.9 Obesity, unspecified; Z68.37 Body mass index [BMI] 37.0-37.9, adult
CPT/HCPCS: 36415; 44970; 71010; 74177; 80053; 81001; 82150; 83690; 85025; 94660; 96361; 96374; 96375; 96376; 99285; A9270; G0378; J0690; J0694; J1885; J2175; J2250; J2270; J2405; J2765; J3010; J7040; J7120; Q9967; 00840; 88304; 99283; J2704

== ENCOUNTER 2017-12-09 04:23 | Emergency (ER) | payer OTHER ==
--- NOTE | 2017-12-09 04:37 | EDM.PDOC ---
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 There is no other contact or concern Review of systems: As per history of present illness and below otherwise all systems reviewed and negative. Past medical history: As per history of present illness and as reviewed below otherwise noncontributory. Surgical history: As per history of present illness and as reviewed below otherwise noncontributory. Social history: No reported history of drug or alcohol abuse. Family history: As per history of present illness and as reviewed below otherwise noncontributory. Physical exam: Remarkable for a healing abrasion of his left forearm neurovascular exam is unremarkable rest physical exam Diagnostics: Exposure protocol Therapeutics: None Impression: #1 medical screening exam #2 blood exposure Definitive disposition and diagnosis as appropriate pending reevaluation and review of above. 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" Gastrointestinal History: Reports: Other (See Below) (Appendicitis) Genitourinary History: Reports: None Musculoskeletal History: Reports: None Neurological History: Reports: None Psychiatric History: Reports: None Endocrine/Metabolic History: Reports: Obesity/BMI 30+ Hematologic History: Reports: None Immunologic History: Reports: None Oncologic (Cancer) History: Reports: None Dermatologic History: Reports: None - Infectious Disease History Infectious Disease History: Reports: None Social & Family History - Caffeine Use Caffeine Use: Reports: Coffee ED ROS GENERAL - Review of Systems Review Of Systems: ROS reveals no pertinent complaints other than HPI. ED EXAM, GENERAL - Physical Exam Exam: See Below (The dictation) Departure - Departure Time of Disposition: 04:36 Disposition: Home, Self-Care 01 Condition: Good Clinical Impression: Encounter for medical screening examination, Exposure to blood - Discharge Information *PRESCRIPTION DRUG MONITORING PROGRAM REVIEWED*: Not Applicable *COPY OF PRESCRIPTION DRUG MONITORING REPORT IN PATIENT GIN: Not Applicable Referrals: PCP,None [Primary Care Provider] - Additional Instructions: The following information is given to patients seen in the emergency department who are being discharged to home. This information is to outline your options for follow-up care. We provide all patients seen in our emergency department with a follow-up referral. The need for follow-up, as well as the timing and circumstances, are variable depending upon the specifics of your emergency department visit. If you don't have a primary care physician on staff, we will provide you with a referral. We always advise you to contact your personal physician following an emergency department visit to inform them of the circumstance of the visit and for follow-up with them and/or the need for any referrals to a consulting specialist. The emergency department will also refer you to a specialist when appropriate. This referral assures that you have the opportunity for followup care with a specialist. All of these measure are taken in an effort to provide you with optimal care, which includes your followup. Under all circumstances we always encourage you to contact your private physician who remains a resource for coordinating your care. When calling for followup care, please make the office aware that this follow-up is from your recent emergency room visit. If for any reason you are refused follow-up, please contact the [facility] emergency department at and asked to speak to the emergency department charge nurse. Follow-up private medical doctor/employee health as discussed return as needed as discussed
[2017-12-09 04:40] VITALS: BP 133/84
== END 2017-12-09 05:19 | disposition home or self-care (01) ==
LOC: MW.ED 04:23
DX: Z77.21 Contact with and (suspected) exposure to potentially hazardous body fluids (principal); Z88.0 Allergy status to penicillin
CPT/HCPCS: 36415; 86706; 86803; 87389; 99283

== ENCOUNTER 2021-02-18 21:42 | Emergency (ER) | payer OTHER ==
[2021-02-18] MEDS ORDERED: Clindamycin HCl 150 MG Cap PO STA (22:06)
[2021-02-18] MEDS ORDERED: traMADol 50 MG Tab PO ONE (22:06)
--- NOTE | 2021-02-18 22:09 | EDM.PDOC ---
ED HPI GENERAL MEDICAL PROBLEM - General Chief Complaint: General Stated Complaint: POSSIBLE MOUTH ABSCESS Time Seen by Provider: 02/18/21 21:44 Source of Information: Reports: Patient History Limitations: Reports: No Limitations - History of Present Illness INITIAL COMMENTS - FREE TEXT/NARRATIVE: Patient is a 35-year-old male presents today for right jaw pain. Patient is he woke up he has some swelling on his right jawline. Patient states he has had dental problems for the past. He has no trouble swallowing breathing or eating. Is been controlling the pain at home with Tylenol and Motrin he came because the pain is still slightly there. Patient has no fever chills or other complaints. Right Face/Facial Pain Score (Numeric/FACES): 7 - Related Data Allergies Allergy/AdvReac Type Severity Reaction Status Date / Time penicillin Allergy Itching Verified 02/18/21 21:54 Home Meds: Home Meds . [No Known Home Meds] 02/18/21 [History] Past Medical History - Past Health History Medical/Surgical History: Denies Medical/Surgical History HEENT History: Reports: None Cardiovascular History: Reports: None Other Respiratory History: "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" Gastrointestinal History: Reports: Other (See Below) Genitourinary History: Reports: None Musculoskeletal History: Reports: None Neurological History: Reports: None Psychiatric History: Reports: None Endocrine/Metabolic History: Reports: Obesity/BMI 30+ Hematologic History: Reports: None Immunologic History: Reports: None Oncologic (Cancer) History: Reports: None Dermatologic History: Reports: None - Infectious Disease History Infectious Disease History: Reports: None Social & Family History - Tobacco Use Second Hand Smoke Exposure: No - Caffeine Use Caffeine Use: Reports: None - Recreational Drug Use Recreational Drug Use: No ED ROS GENERAL - Review of Systems Review Of Systems: See Below Constitutional: Reports: No Symptoms HEENT: Reports: Dental Pain Respiratory: Reports: No Symptoms Cardiovascular: Reports: No Symptoms Endocrine: Reports: No Symptoms GI/Abdominal: Reports: No Symptoms : Reports: No Symptoms Musculoskeletal: Reports: No Symptoms Skin: Reports: No Symptoms Neurological: Reports: No Symptoms Psychiatric: Reports: No Symptoms Hematologic/Lymphatic: Reports: No Symptoms Immunologic: Reports: No Symptoms ED EXAM, GENERAL - Physical Exam Exam: See Below Exam Limited By: No Limitations General Appearance: Alert, WD/WN, No Apparent Distress Throat/Mouth: Normal Teeth. No: Normal Gums Head: Atraumatic Neck: Normal Inspection Respiratory/Chest: No Respiratory Distress, Lungs Clear, Normal Breath Sounds Cardiovascular: Normal Peripheral Pulses, Regular Rate, Rhythm GI/Abdominal: Normal Bowel Sounds, Soft, Non-Tender Extremities: Normal Inspection Neurological: Alert, Oriented, Normal Cognition, Normal Gait Course - Vital Signs Last Recorded V/S: Last Vital Signs Temp 97.5 F 02/18/21 21:49 Pulse 61 02/18/21 21:49 Resp 20 02/18/21 21:49 BP 151/86 H 02/18/21 21:49 Pulse Ox 98 02/18/21 21:49 - Orders/Labs/Meds Orders: Active Orders 24 hr Category Date Time Status clindamycin HCL [Cleocin] Med 02/18/21 22:06 Stat 450 mg PO NOW STA traMADol [Ultram] Med 02/18/21 22:06 Once 50 mg PO ONETIME ONE Departure - Departure Time of Disposition: 22:09 Disposition: Home, Self-Care 01 Condition: Good Clinical Impression: Dental abscess - Discharge Information *PRESCRIPTION DRUG MONITORING PROGRAM REVIEWED*: Not Applicable *COPY OF PRESCRIPTION DRUG MONITORING REPORT IN PATIENT GIN: Not Applicable Instructions: Dental Abscess, [id number] Referrals: PCP,None [Primary Care Provider] - Additional Instructions: The following information is given to patients seen in the emergency department who are being discharged to home. This information is to outline your options for follow-up care. We provide all patients seen in our emergency department with a follow-up referral. The need for follow-up, as well as the timing and circumstances, are variable depending upon the specifics of your emergency department visit. If you don't have a primary care physician on staff, we will provide you with a referral. We always advise you to contact your personal physician following an emergency department visit to inform them of the circumstance of the visit and for follow-up with them and/or the need for any referrals to a consulting specialist. The emergency department will also refer you to a specialist when appropriate. This referral assures that you have the opportunity for follow-up care with a specialist. All of these measure are taken in an effort to provide you with optimal care, which includes your follow-up. Under all circumstances we always encourage you to contact your private physician who remains a resource for coordinating your care. When calling for follow-up care, please make the office aware that this follow-up is from your recent emergency room visit. If for any reason you are refused follow-up, please contact the [facility] Emergency Department at and asked to speak to the emergency department charge nurse. Please follow up with your primary care physician. If you do not have a primary care physician, see below: [facility] [id number], [place] [address] My [facility] [address] [place] [address] You are seen today for dental pain likely related to dental abscess. We will send you home with antibiotics and pain meds. If you develop any difficulty breathing or swallowing or pain increased your neck please return to the ED immediately otherwise continue to follow-up with a dentist tomorrow. Sepsis Event Note (ED) - Evaluation Sepsis Screening Result: No Definite Risk - Focused Exam Vital Signs: Vital Signs Temp Pulse Resp BP Pulse Ox 02/18/21 21:49 97.5 F 61 20 151/86 H 98 - My Orders Last 24 Hours: My Active Orders 02/18/21 22:06 traMADol [Ultram] 50 mg PO ONETIME ONE 02/18/21 22:06 clindamycin HCL [Cleocin] 450 mg PO NOW STA - Assessment/Plan Last 24 Hours: My Active Orders 02/18/21 22:06 traMADol [Ultram] 50 mg PO ONETIME ONE 02/18/21 22:06 clindamycin HCL [Cleocin] 450 mg PO NOW STA Plan: Patient is a 35-year-old male presents today for right jaw pain and swelling. Patient looks to have a dental abscess. Patient has no difficulty breathing or swallowing floor the mouth is soft. We will prescribe antibiotics and patient will see his dentist tomorrow morning.
[2021-02-18 22:23] VITALS: BP 160/85; PULSE 63
== END 2021-02-18 22:23 | disposition home or self-care (01) ==
LOC: MW.ED 21:42
DX: K04.7 Periapical abscess without sinus (principal); E66.9 Obesity, unspecified; Z88.0 Allergy status to penicillin; Z68.36 Body mass index [BMI] 36.0-36.9, adult
CPT/HCPCS: 99283; A9270